=== PATIENT | female | born 1970 | race Caucasian/White ===

== ENCOUNTER 2018-06-12 00:26 | Outpatient (CLI) | payer BC, SELFPAY ==
--- NOTE | 2018-06-12 09:48 | DI.US_ITS ---
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 The uterus is retroverted and measures 5.3 cm long by 2.7 cm AP by 3.6 cm transverse. The endometrial stripe is within normal limits at 0.2 cm. No myometrial mass is present. The right ovary measures 2.5 x 1.0 x 2.0 cm and is grossly unremarkable. There is again seen a para-ovarian cyst in the right adnexa. Currently it measures 2.7 x 1.7 x 2.7 cm. The left ovary was not definitely appreciated. There is a lobulated hypoechoic vascular mass in the left adnexa currently measuring 2.3 x 2.6 x 3.6 cm. This was present on prior examinations. Previously on examination from 06/13/16 this area measured 2.7 x 3.8 cm. Visually it has a similar appearance on the current examination. IMPRESSION: 1. Stable left adnexal vascular lesion. If further imaging is warranted MRI without and with contrast should be considered for further evaluation. 2. Stable right para-ovarian cystic lesion.
== END 2018-06-12 00:46 ==
PROVIDERS: PCP Nurse Practitioner; Visit Provider Nurse Practitioner
DX: N83.202 Unspecified ovarian cyst, left side (principal); N85.4 Malposition of uterus; N83.8 Other noninflammatory disorders of ovary, fallopian tube and broad ligament; Z87.42 Personal history of other diseases of the female genital tract; Z15.02 Genetic susceptibility to malignant neoplasm of ovary
CPT/HCPCS: 76830; 76856

== ENCOUNTER 2018-08-05 00:53 | Outpatient (CLI) | payer BC, SELFPAY ==
--- NOTE | 2018-08-05 14:30 | DI.COMBO_ITS ---
SYMPTOM/DIAGNOSIS: SCREENING, Z12.31, Z85.3, FAMILY H/O BREAST CA, PERSONAL H/O BREAST CA MAMMOGRAMS AND RT AXILLARY ULTRASOUND: Mammograms were interpreted according to the usual protocol including computer analysis with CAD system, tomosynthesis and C view imaging. The mammograms are compared with exams from 5600-8746. The patient has a history of right breast cancer with lumpectomy in the upper outer quadrant. There is mild scarring in this area. The breasts are composed of heterogeneously dense fibroglandular tissue, breast density, Category C. No suspicious masses or suspicious microcalcifications are seen in either breast. There has been no significant change. No abnormalities or changes are visible in the right axilla. RIGHT AXILLARY ULTRASOUND: The left axilla was also scanned for comparison. No mass, cyst or adenopathy is seen in either axilla. IMPRESSION: Category 2, negative mammogram with benign findings. Negative ultrasound of the right axilla. Annual screening mammography is recommended. MQSA ASSESSMENT OF FINDINGS: Negative with benign findings. Category 2. Patient will receive a letter notifying them of these results. Bi-RADS category C. The breasts are heterogeneously dense, which may obscure small masses.
== END 2018-08-05 01:13 ==
PROVIDERS: PCP Nurse Practitioner; Visit Provider Nurse Practitioner
DX: Z12.31 Encounter for screening mammogram for malignant neoplasm of breast (principal); Z85.3 Personal history of malignant neoplasm of breast; Z80.3 Family history of malignant neoplasm of breast
CPT/HCPCS: 76642; 77063; 77067

== ENCOUNTER 2019-08-20 01:30 | Outpatient (CLI) | payer BC, SELFPAY ==
--- NOTE | 2019-08-20 13:50 | DI.US_ITS ---
EXAM: US PELVIS AND TRANSVAGINAL CLINICAL HISTORY: HX OVARIAN CYST Z87.42 GENETIC SUSCEPTIBILITY TO MALIGNANT NEOPLASM OF OVARY, Z15. 02 TECHNIQUE: Ultrasound performed using standard protocol. Abdominal and transvaginal exams were per formed. US PELVIS TRANSVAGINAL from 06/12/2018 FINDINGS: Uterus measures 4.6 x 2.5 x 3.3 cm and is retroverted. Two small fibroids are now seen anteriorly ne ar the fundus. A 2.2 centimeter simple cyst is seen on the right ovary. In the left adnexal region, there is a 2.1 x 2.3 x 3.5 centimeter solid lesion. This does not appear significantly changed when compared with previous exams. There is a small amount of free fluid. The kidneys are unremarkable. IMPRESSION: Stable left adnexal lesion. DATA REPOSITORY:
== END 2019-08-20 01:50 ==
PROVIDERS: PCP Family Medicine; Visit Provider Family Medicine
DX: D25.9 Leiomyoma of uterus, unspecified (principal); N83.291 Other ovarian cyst, right side; N83.8 Other noninflammatory disorders of ovary, fallopian tube and broad ligament; Z87.42 Personal history of other diseases of the female genital tract; Z15.02 Genetic susceptibility to malignant neoplasm of ovary
CPT/HCPCS: 76830; 76856

== ENCOUNTER 2020-01-27 11:29 | Outpatient (REF) | payer BC, SELFPAY ==
--- NOTE | 2020-01-27 10:00 | PAPFT_PTH ---
PATIENT: ALETHEA FOOTE LOC: [facility]#:[id number] AGE/SX: 49/F ROOM: RE01/27/[address]: Avani Branch : 1970 BED: DIS: 01/27/2020 SPEC #: [id number] RECD: 01/28/20 12:55 STATUS: MARQUIS REQ #: [id number] FRANCIS: 01/27/20 10:[address]: Avani Branch DEPT[facility] Cytology RECD BY: Elham Edwards ENTERED: 01/28/20 12:55 SP TYPE: PAPFT OTHR DR: Keyonna Shepard Tissues: 1 - CX/ENDOCX FOR PAP SMEARS Procedures: PAP THIN PREP/[facility] Screening Comments: [id number] (UNSATISFACTORY FOR EVALUATION)
== END 2020-01-27 11:49 ==
LOC: NCHCN 11:29
PROVIDERS: PCP Family Medicine
DX: R87.615 Unsatisfactory cytologic smear of cervix (principal)
CPT/HCPCS: 88142

== ENCOUNTER 2020-01-29 15:19 | Outpatient (REF) | payer BC, SELFPAY ==
[2020-01-29 21:34] LABS: Abs Immature Grans 0.01 10^3/uL (0.0-0.06); Absolute Basophil Count 0.05 10^3/uL (0.0-0.2); Absolute Eosinophil Count 0.07 10^3/uL (0.0-0.7); Absolute Lymphocyte Count 1.37 10^3/uL (1.2-3.4); Absolute Monocyte Count 0.38 10^3/uL (0.1-0.8); Absolute Neutrophil Count 2.68 10^3/uL (1.2-6.7); Basophils % 1.1; Eosinophils % 1.5; HCT 37.8 % (36.0-46.0); HGB 12.4 g/dL (11.2-15.7); Immature Grans % 0.2; MCH 31.2 pg (27.0-33.0); MCHC 32.8 % (32.0-36.0); MPV 11.3 fL (8.0-11.0); Monocytes % 8.3; Neutrophils % 58.9; Platelet Count 162 10^3/uL (130-400); RBC 3.98 10^6/uL (3.93-5.22); RDW 12.4 % (11.7-14.6); RDW-SD 43.5 fL; WBC 4.56 10^3/uL (4.4-10.8)
[2020-01-29 21:50] LABS: ALT 52 U/L (14-59); AST 27 U/L (15-37); Albumin 4.1 g/dL (3.4-5.0); Alkaline Phosphatase 58 U/L (46-116); Anion Gap 6.8 mmol/L (3-11); BUN 24 mg/dL (7-18); Bilirubin, Total 0.4 mg/dL (0.2-1.0); CO2 30.2 mmol/L (21.0-32.0); CREATININE 0.79 mg/dL (0.55-1.02); Chloride 102 mmol/L (98-107); Glucose 85 mg/dL (74-106); Potassium 4.6 mmol/L (3.5-5.1); Sodium 139 mmol/L (136-145); TSH (W/Ref FT4) 0.92 uIU/mL (0.36-3.74); Total Protein 7.3 g/dL (6.4-8.2)
[2020-01-29 21:56] LABS: Hemoglobin A1C 5.9 % (3.8-5.6)
== END 2020-01-29 15:39 ==
LOC: NCHCN 15:19
PROVIDERS: PCP Family Medicine
DX: R63.4 Abnormal weight loss (principal); R73.03 Prediabetes; E03.9 Hypothyroidism, unspecified
CPT/HCPCS: 80053; 83036; 84443; 85025

== ENCOUNTER 2020-02-04 01:17 | Outpatient (CLI) | payer BC, SELFPAY ==
--- NOTE | 2020-02-04 | DI.US_ITS ---
EXAM: US PELVIS TRANSVAGINAL CLINICAL HISTORY: H/O OVARIAN CYST,Z87.42,GENETIC SUSCEPTIBILITY TO OVARIAN CA,Z15.02 TECHNIQUE: Ultrasound performed using standard protocol. COMPARISON: US US PELVIS TRANSVAGINAL from 08/20/2019 FINDINGS: Pelvic ultrasound was performed transabdominally and transvaginally. Please see accompanying data sh eet for measurements of pelvic structures. A previously described left adnexal mass is again seen, t his measures 37 x 27 x 21 millimeters in diameter on today's examination, this is slightly larger melissa n prior examination August 20 when it measured 21 x 23x 35 millimeters. There is a simple cyst o f the right ovary measuring 28 millimeters in diameter.. Uterus is unremarkable in appearance except for a couple of small posterior fibroids with a 2 millimeter thick homogeneous endometrial stripe. No free fluid identified in the cul-de-sac. Limited scanning of the kidneys is unremarkable. IMPRESSION: Indeterminate left ovarian mass, pelvic MRI recommended for further evaluation, neoplastic disease no t excluded. DATA REPOSITORY:
== END 2020-02-04 01:37 ==
PROVIDERS: PCP Family Medicine
DX: Z87.42 Personal history of other diseases of the female genital tract (principal); Z15.02 Genetic susceptibility to malignant neoplasm of ovary; N83.8 Other noninflammatory disorders of ovary, fallopian tube and broad ligament; N83.201 Unspecified ovarian cyst, right side
CPT/HCPCS: 76830; 76856

== ENCOUNTER 2020-02-08 16:50 | Outpatient (REF) | payer BC, SELFPAY ==
[2020-02-10 11:05] LABS: CA 125 8 U/mL (<30)
== END 2020-02-08 17:10 ==
LOC: NCHCN 16:50
PROVIDERS: PCP Family Medicine
DX: R19.09 Other intra-abdominal and pelvic swelling, mass and lump (principal); R63.4 Abnormal weight loss
CPT/HCPCS: 86304